=== PATIENT | male | born 1990 | race Caucasian/White ===

== ENCOUNTER 2019-04-08 12:37 | Emergency (ER) | payer MEDICAID ==
[2019-04-08 13:02] VITALS: RESP 18; TEMP 98.2; BMI 21.7
--- NOTE | 2019-04-08 15:55 | ED PDOC ---
Arrival/HPI - General Chief Complaint: Med Refill Time Seen by Provider: 04/08/19 12:42 Historian: Patient - History of Present Illness Narrative History of Present Illness (Text): 04/08/19 15:53 28yr old male presents to the emergency department requesting a refill for seroquel and haldol . Patient states he has enough medication to last two more days, but has been unable to make an appointment at the clinic. Patient denies s uicidal idealization, shortness of breath, chest pain, abdominal pain, nausea, and vomiting. Time/Duration: Prior to Arrival Symptom Onset: Gradual Activities at Onset: Light Context: Home Past Medical History - Provider Review Nursing Documentation Reviewed: Yes Primary Care Provider: Non [facility] Provider, - Travel History Have you recently traveled outside [place] w/in the past 3 mons?: No - Tetanus Immunization Tetanus Immunization: Unknown - Cardiac Hx Cardiac Disorders: No - Psychiatric Hx Psychophysiologic Disorder: Yes Hx Bipolar Disorder: Yes Hx Schizophrenia: Yes Hx Substance Use: No Family/Social History - Physician Review Nursing Documentation Reviewed: Yes Family/Social History: Unknown Family HX Smoking Status: Never Smoked Hx Alcohol Use: No Hx Substance Use: No Allergies/Home Meds Allergies/Adverse Reactions: Allergies No Known Allergies Allergy (Verified 04/08/19 13:57) Home Medications: Home Meds Medication Instructions Recorded Confirmed Haloperidol Lactate [Haloperidol 5 mg IM ONCE 04/08/19 04/08/19 Lactate Novaplus] QUEtiapine [SEROquel] 600 mg PO DAILY 04/08/19 04/08/19 Review of Systems - Physician Review All systems were reviewed & negative as marked: Yes - Review of Systems Constitutional: absent: Fatigue, Fevers Respiratory: absent: SOB, Cough Cardiovascular: absent: Chest Pain, Palpitations Gastrointestinal: absent: Abdominal Pain, Nausea, Vomiting Musculoskeletal: absent: Arthralgias, Back Pain, Neck Pain Skin: absent: Rash, Pruritis Neurological: absent: Headache, Dizziness Psychiatric: absent: Suicidal Ideation Physical Exam Vital Signs Reviewed: Yes Vital Signs Temp Pulse Resp BP Pulse Ox 04/08/19 13:01 98.2 F 98 H 18 108/73 98 Temperature: Afebrile Blood Pressure: Normal Pulse: Regular Respiratory Rate: Normal Appearance: Positive for: Well-Appearing, Non-Toxic, Comfortable Pain Distress: None Mental Status: Positive for: Alert and Oriented X 3 - Systems Exam Head: Present: Atraumatic Extroacular Muscles: Present: EOMI Mouth: Present: Moist Mucous Membranes Neck: Present: Normal Range of Motion Respiratory/Chest: Present: Clear to Auscultation, Good Air Exchange. No: Respiratory Distress, Accessory Muscle Use, Wheezes, Rhonchi Cardiovascular: Present: Regular Rate and Rhythm, Normal S1, S2. No: Murmurs Abdomen: No: Tenderness, Distention, Peritoneal Signs Lower Extremity: Present: Normal ROM Neurological: Present: GCS=15, Speech Normal Skin: Present: Warm, Dry, Normal Color. No: Rashes Psychiatric: Present: Alert, Oriented x 3. No: Suicidal Ideation, Homicidal Ideation Medical Decision Making ED Course and Treatment: 04/08/19 16:02 Impression: 28 y.o male who presents to the emergency department requesting a refill for his medication seroquel and haloperidol. Patient denies suicidal or homicidal ideations Progress Notes: Will speak to PES screener for further recommendation. 04/08/19 17:09 Pes biochemical engineer Chong spoke with dr. Davies. unable to expedite an appointment for the patient. He was advised that he needs to call the outpatient clinic to reschedule an appointment. All aspects of this case were discussed the attending of record. Impression: Encounter for medication refill Follow-up with a psychiatrist within the next 2 days Increase fluids Follow-up with a primary care physician within the next 2 days Return immediately if symptoms worsen persist or if new concerning symptoms develop - Scribe Statement The provider has reviewed the documentation as recorded by the Albina Neri All medical record entries made by the Albina were at my direction and personally dictated by me. I have reviewed the chart and agree that the record accurately reflects my personal performance of the history, physical exam, medical decision making, and the department course for this patient. I have also personally directed, reviewed, and agree with the discharge instructions and disposition. Disposition/Present on Arrival - Present on Arrival Any Indicators Present on Arrival: No History of DVT/PE: No History of Uncontrolled Diabetes: No Urinary Catheter: No History of Decub. Ulcer: No History Surgical Site Infection Following: None - Disposition Have Diagnosis and Disposition been Completed?: Yes Diagnosis: Encounter for medication refill Disposition: HOME/ ROUTINE Disposition Time: 17:12 Patient Plan: Discharge Patient Problems: Current Active Problems Problem Status Onset Encounter for medication refill Acute Condition: GOOD Discharge Instructions (ExitCare): Where to Get Help Paying for Your Prescriptions Additional Instructions: Follow-up with a psychiatrist within the next 2 days Increase fluids Follow-up with a primary care physician within the next 2 days Return immediately if symptoms worsen persist or if new concerning symptoms develop Referrals: Nishi Ballard MD [Staff Provider] - Follow up with primary Jailyn Cleveland MD [Medical Doctor] - Follow up with primary [facility] [Outside] - Follow up with primary [facility] [[facility]] - Follow up with primary Forms: [employer] (Serbian), WORK NOTE
[2019-04-08 17:25] VITALS: BP 110/71; PULSE 88; O2SAT 99
== END 2019-04-08 17:26 | disposition home or self-care (01) ==
LOC: ED 12:37
DX: Z76.0 Encounter for issue of repeat prescription (principal); F31.9 Bipolar disorder, unspecified; F20.9 Schizophrenia, unspecified